=== PATIENT | female | born 1975 | race Caucasian/White ===

== ENCOUNTER 2020-10-08 13:52 | Outpatient (CLI) | payer OTHER, SELFPAY ==
--- NOTE | ~2020-10-08 | US_ITS ---
EXAMINATION: US OB follow up DATE: 10/08/2020 14:51 INDICATION: Evaluate growth TECHNIQUE: Real-time transabdominal obstetric ultrasound. FINDINGS: No prior studies for comparison. There is a single living fetus in vertex presentation. The placenta is posterior without placenta pr evia. cardiac activity and movement is noted with a heart rate of 123 beats per minute. T he amniotic fluid volume is normal. MOLLY measures 13.3 cm. The following biometric data were obtained: BPD: 74mm corresponds to gestational age 29 weeks 3 days. Head circumference: 269mm corresponds to gestational age 29 weeks 2 days. Abdominal circumference: 249mm corresponds to gestational age 29 weeks 1 days. Femur length: 57mm corresponds to gestational age 29 weeks 5 days. Estimated weight: 1383grams +/- 207grams, 35th percentile for age. IMPRESSION: 1. Single living intrauterine in vertex presentation with an estimated gestational age of 29 weeks 3 days by current ultrasound. EDC by current ultrasound is 12/21/2020. 2. Normal MOLLY measures 13.3 cm. Reviewed, dictated and finalized at location A. FRAME SOFTWARE DEVELOPER IMPRESSION: 1. Single living intrauterine in vertex presentation with an estimat ed gestational age of 29 weeks 3 days by current ultrasound. EDC by current ult rasound is 12/21/2020. 2. Normal MOLLY measures 13.3 cm.
== END 2020-10-08 13:53 | disposition home or self-care (01) ==
LOC: ANHIMG 13:58
PROVIDERS: Visit Provider Obstetrics & Gynecology
DX: Z34.90 Encounter for supervision of normal pregnancy, unspecified, unspecified trimester (principal); Z3A.00 Weeks of gestation of pregnancy not specified
CPT/HCPCS: 76816

== ENCOUNTER 2020-12-31 12:10 | Outpatient (RCR) | payer OTHER, SELFPAY ==
[2020-12-26 15:57] VITALS: BP 127/80; PULSE 74
[2020-12-28 17:08] VITALS: BP 131/81; PULSE 80
--- NOTE | ~2020-12-31 | US_ITS ---
EXAMINATION: US OB limited w BPP DATE: 12/26/2020 15:48 CDT INDICATION: Postdates. TECHNIQUE: Real-time transabdominal obstetric ultrasound. FINDINGS: Ultrasound dated 10/08/2020 There is a single living fetus in vertex presentation. The placenta is fundal without placenta previ a. cardiac activity and movement is noted with a heart rate of 147 beats per minute. Biophysical profile: breathin of 2 movement: 2 of 2 tone: 2 of 2 Amniotic flud pocket: 2 of 2 Total score: 6 of 8 MOLLY is normal measuring 11.4 cm (normal range for gestational age is 7-19.4 cm). IMPRESSION: 1. Single living intrauterine in vertex presentation. 2: Total biophysical profile score of 6/8. 3: Normal MOLLY measures 11.4 cm. Reviewed, dictated and finalized at location A.
--- NOTE | ~2020-12-31 | US_ITS ---
EXAMINATION: US OB follow up w BPP EXAM DATE: 12/28/2020 16:41 INDICATION: Postdates. 12/26/2020. TECHNIQUE: Pelvic obstetrical transabdominal sonogram was performed by a technologist. There are mu ltiple grayscale and Doppler images available for interpretation. Comparison is made to prior examina tion from 12/26/2020. FINDINGS: There is a single fetus identified in vertex presentation with a heart rate of 157 beats pe r minute. The placenta is located in the posterior position. There is no sonographic evidence of ret roplacental hemorrhage identified. The amniotic fluid index is 14.0 centimeters, which is normal. BIOMETRIC DATA: Biparietal diameter (BPD): 9.4 cm --------------> 38 weeks 3 days. Head circumference (HC): 33.0 cm ---------------> 37 weeks 4 days. Abdominal circumference (AC): 39.2 cm ---------> out of range. Femur length (FL): 7.3 cm ------------------------> 37 weeks 1 day. These measurements are discordant, likely from large abdominal circumference measurement. HC/AC ratio is 0.84 (The 5th -- 95th percentile range is 0.90-1.05. FL/AC ratio of 18.50 The 5th -- 95th percentile range is 20.0-24.0. Estimated weight is 4189 g +/- 628 g. This is the 80th percentile when the currently reported clinical gestation age 41 weeks 0 days, clinical estimated date of delivery (MAGUI-OPE) 12/21/2020 is us ed. estimated gestational age based on measurements from this exam is 37 weeks 5 days, with an estimated date of delivery (MAGUI-AUA) 01/13/2021 (abdominal circumference measurement was out of upper limits and was not included to by the ultrasound machine to calculate this age by ultrasound). BIOPHYSICAL PROFILE (performed by the technologist) breathing (30 sec sustained breathing in 30 minutes): 2 out of 2 movement (3 gross body movements in 30 minutes): 2 out of 2 tone (one episode of ujczmzh-qrgbvenvh-djhqxbl limb movement): 2 out of 2 Amniotic fluid pocket (2 cm): 2 out of 2 Total score: 8 out of 8 IMPRESSION: 1. Single fetus with heart rate of 157 bpm. 2. Normal biophysical profile score of 8 out of 8. 3. Estimated weight 4189 g, 80th percentile using clinical gestation age 41 weeks 0 days. 4. Large abdominal circumference measurement causing discordant ratios as above. Reviewed, dictated and finalized at location B. IMPRESSION: 1. Single fetus with heart rate of 157 bpm. 2. Normal biophysical profile score of 8 out of 8. 3. Estimated weight 4189 g, 80th percentile using clinical gestation age 41 weeks 0 days. 4. Large abdominal circumference measurement causing discordant ratios as abov e.
--- NOTE | ~2020-12-31 | US_ITS ---
EXAMINATION: US OB BPP wo non-stress EXAM DATE: 12/31/2020 13:12 INDICATION: Postdates. 3rd trimester. TECHNIQUE: Pelvic obstetrical transabdominal sonogram was performed by a technologist. There are mu ltiple grayscale and Doppler images available for interpretation. Comparison is made to prior examina tion from 12/28/2020. FINDINGS: There is a single fetus identified in vertex longitudinal presentation with a heart rate of 125 beats per minute. The placenta is located in the fundal position. There is no sonographic evide nce of retroplacental hemorrhage identified. There is subjectively expected amount of amniotic fluid . BIOPHYSICAL PROFILE (performed by the technologist) breathing (30 sec sustained breathing in 30 minutes): 2 out of 2 movement (3 gross body movements in 30 minutes): 2 out of 2 tone (one episode of lbqoqqj-awlxvwdkc-xrwahjf limb movement): 2 out of 2 Amniotic fluid pocket (2 cm): 2 out of 2 Total score: 8 out of 8 IMPRESSION: 1. Single fetus with heart rate of 125 bpm. 2. Normal biophysical profile score of 8 out of 8. Reviewed, dictated and finalized at location B.
== END 2021-01-06 07:36 | disposition home or self-care (01) ==
LOC: ANHOBOP 12:10
PROVIDERS: Visit Provider Obstetrics & Gynecology
DX: O48.0 Post-term pregnancy (principal); Z3A.40 40 weeks gestation of pregnancy; Z3A.41 41 weeks gestation of pregnancy
CPT/HCPCS: 59025; 76815; 76816; 76819

== ENCOUNTER 2021-01-05 16:52 | Inpatient (IN) | payer OTHER, SELFPAY ==
--- NOTE | 2020-12-26 06:35 | PM.IMHP ---
H&P: HPI History of Present Illness Date/Time: 12/26/20 06:35 45 yo F presents for IOL at 40wksand 5days. complicated by AMA, MTHFR, and history of recurrent loss. I explained her condition procedure and risks involved. She understands the risk of shoulder dystocia and hemorrhage as well as risk for section including but not limited to bleeding infection injury to bladder bowel baby pelvic vessels DVT pneumonia wound infections UTI the risk of anesthesia agrees to proceed Chief Complaint: elective induction of labor post term Review of Systems Review of Systems: All systems reviewed & are unremarkable except as noted in HPI and below Constitutional: Constitutional: Reports no additional constitutional complaints Eyes: Eyes: Reports no additional eye complaints ENT: Reports system reviewed and no additional complaints, except as documented Cardiovascular: Cardiovascular: Reports no additional cardiovascular complaints Respiratory: Respiratory: Reports no additional respiratory complaints Gastrointestinal: Gastrointestinal: Reports no additional gastrointestinal complaints Genitourinary: Genitourinary: Reports no additional female genitourinary complaints Musculoskeletal: Musculoskeletal: Reports no additional musculoskeletal complaints Integumentary/Breasts: Skin/Breast: Reports system reviewed and no additional complaints, except as docu Neurologic: Reports system reviewed and no additional complaints, except as documented Psychiatric: Psychiatric: Reports no additional psychiatric complaints Endocrine: Endocrine: Reports no additional endocrine complaints Hematologic/Lymphatic: Hematologic/Lymphatic: Reports no additional hematologic/lymphatic complaints Allergic/Immunologic: Allergic/Immunologic: Reports no additional allergic/immunologic complaints [facility] Past Medical History Medical History (Updated 12/26/20 @ 06:52 by Silvano Steinberg MD) AMA (advanced maternal age) multigravida 35+ Anemia Candidiasis of vagina Heterozygous MTHFR mutation [id number] Recurrent loss Trichomonal vaginitis Vaginal delivery 11/18/200314012 hrs.7 lbs.0.99 oz.MStandard Vaginal DeliveryFull Term [facility] 05/05/200514010 hrs.7 lbs.2 oz.FStandard Vaginal DeliveryFull Term [facility] 02/11/2018141.38 lbs.13 oz.MVaginalFull Term [facility] Surgical History Surgical History (Updated 12/26/20 @ 06:48 by Silvano Steinberg MD) History of D&C 1995 History of dilatation and curettage 1999 Family History Family History Mother Hypertension Father Cancer of abdominal wall Social History Social History (Updated 12/26/20 @ 06:49 by Silvano Steinberg MD) Smoking status: Never smoker Second hand tobacco smoke exposure: No Alcohol intake: never Substance use: never Substance use type: does not use Living arrangements: with family Occupation/Education: unemployed Gender identity (if verbalized by the patient): Female Sexual Orientation (if Verbalized by the Patient): Straight or Heterosexual Spiritual care concerns: No Agree to blood products: Yes Meds Home Medications and Allergies Home Medications Medication Instructions Recorded Confirmed Type PNV cmb#95-ferrous fumarate-FA 1 tablet PO DAILY 11/22/20 11/22/20 History [] aspirin 81 mg PO DAILY 11/22/20 11/22/20 History calcium carbonate-vitamin D3 1 cap PO DAILY 11/22/20 11/22/20 History [Calcium 600 with Vitamin D3] cyanocobalamin (vitamin B-12) 1,000 mcg MONTHLY 11/22/20 11/22/20 History folic acid 1 mg PO DAILY 11/22/20 11/22/20 History nystatin-triamcinolone 1 applic TOPICAL BID 11/22/20 11/22/20 History progesterone micronized 200 mg PO HS 11/22/20 11/22/20 Histor
--- NOTE | 2020-12-26 06:40 | WPDHPUPDATE1 ---
History and Physical Update Update Date/Time: 12/26/20 06:40 History and Physical has been reviewed, including an updated exam of the patient. There are NO changes in the patient's condition. Risks, benefits, and alternatives have been discussed and questions answered. Patient agrees to proceed with procedure. 45 yo F presents for IOL at 40wksand 5days. complicated by AMA, MTHFR, and history of recurrent loss. I explained her condition procedure and risks involved. She understands the risk of shoulder dystocia and hemorrhage as well as risk for section including but not limited to bleeding infection injury to bladder bowel baby pelvic vessels DVT pneumonia wound infections UTI the risk of anesthesia agrees to proceed
--- NOTE | 2020-12-26 06:40 | WPDOBADMIT ---
Obstetrics - Admit Note Admission Note: record reviewed. No pertinent additions to the history and/or any subsequent changes in the physical findings that are not consistent with the expected course of the were found. Additions to the history and/or subsequent changes in the physical findings follow. None. 45 yo F presents for IOL at 40wksand 5days. complicated by AMA, MTHFR, and history of recurrent loss. I explained her condition procedure and risks involved. She understands the risk of shoulder dystocia and hemorrhage as well as risk for section including but not limited to bleeding infection injury to bladder bowel baby pelvic vessels DVT pneumonia wound infections UTI the risk of anesthesia agrees to proceed
[2021-01-05] VITALS (26 sets, daily range): BP systolic 98–178; BP diastolic 56–161; PULSE 70–142; RESP 14–18; TEMP 36.6–36.9; BMI 33.4
--- OUTSIDE RECORDS SUMMARY | 2021-01-05 16:56 | XMS_ITS | Encounter Summary ---
:1975 Author Care Team Providers Name Role Phone Silvano Steinberg MD Exhibition Specialist [phone] Reason for Visit ob routine visit Assessment and Plan Assessment Note HEMANT Bravo 1. Routine care US 10/08/2020 with appropriate growth, EFW 35%, MOLLY WNL. ? urinalysis, dipstick 2. Post-term ? post-term : care instructions ? induction of labor (PROC) 3. -induced hypertensio n 4. Advanced maternal age NIPT low risk. VSS. Continue A SA 162 mg QD. ? advanced maternal age: car e instructions 5. Anemia of 6. 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 7. History of 2 miscarriages 8. Recurrent miscarriage Discussion Note: None recorded. Plan of Care Reminders Provider Appointments 15 M arina Steinberg, 01/26/2021 1:45PM Lab Urinalysis, In-Of fice Order Dipstick 01/05/2021 Referral None recorded. ? ? Procedures Induction of Pérez rson Labor (PROC) 01/05/2021 Hospital Surgeries None recorded. ? ?
--- OUTSIDE RECORDS SUMMARY | 2021-01-05 16:56 | XMS_ITS ---
:1975 Author Care Team Providers Name Role Phone JONI PADILLA MD Dull Coat Mill Operator [phone] Allergies Code Code System Name Reaction Severity Status Onset NKDA ? Medications Name Status Start Date Stop Date ? ? aspirin 81 mg tablet,delayed release Active ? Not available Calcium 600 + D(3) 600 mg (1,500 mg)-400 unit tablet Completed ? 06/17/2020 Take 1 tablet twice a day by oral route. Calcium 600 with Vitamin D3 600 mg (1,500 mg)-400 unit capsule A ctive ? Not available Take 1 capsule twice a day by oral route. calcium carbonate-vitamin D3 600 mg (1,500 mg)-800 unit tablet C ompleted ? 12/26/2017 Take 1 tablet twice a day by oral route for 30 days. cephalexin 500 mg capsule Completed ? 2017 Condoms-Abhishek Lubricated Completed ? 06/17/20 20 Take 1 device by miscell. route. cyanocobalamin (vit B-12) 1,000 mcg/mL injection solution Active ? Not available Inject 1 mL every month by subcutaneous route. ferrous sulfate 325 mg (65 mg iron) tablet Completed ? 06/17/2020 Take 1 tablet every day by oral route. fluconazole 150 mg tablet Active ? Not av ailable folic acid 1 mg tablet Active ? Not avail able ibuprofen 800 mg tablet Completed ? 06/17/20 20 K-Y Lubricating topical jelly Completed ? Apply 1 g as needed by topical route. Or [place] Liquid metronidazole 500 mg tablet Completed ? 05/30 nystatin 100,000 unit/gram topical Active ? Not available cream penicillin V potassium 500 mg tabl
--- OUTSIDE RECORDS SUMMARY | 2021-01-05 16:57 | XMS_ITS | Encounter Summary ---
:1975 Author Care Team Providers Name Role Phone Silvano Steinberg MD Rn Document Improvement [phone] Reason for Visit ob routine visit Patient would like to see a chiropractor . Having some back pain. Paper will be coming for a breast pump. Assessment and Plan 1. Routine care YAS at 31w3d. c/b AM A, MTHFR, and hx of recurrent loss. US 10/08 with appropriate growth, E FW 35%, MOLLY wnl. RTC in 2 weeks. ? urinalysis, dipstick 2. Advanced maternal age NIPT low risk. VSS. Continue A SA 162. 3. Heterozygous methylenetetrahy drofolate reductase mutation MTHFR [id number] variant. Continue progesterone, folic acid, and aspirin. B12 injection given today. ? cyanocobalamin (vit B-12) 1,000 mcg/mL injection solution 4. Recurrent miscarriage RPL protocol. 5. Low back pain Chronic low back pain. Has see n chiropractor during first two pregnancies, will refer. ? chiropractor referral Discussion Note: None recorded.Patient educational handouts: No information available. Plan of Care Reminders Provider Appointments 15 M arina Steinberg, 01/26/2021 1:45PM Lab Urinalysis, In-Of fice Order Dipstick 10/22/2020 Referral Chiropractor Bryan Tapia Referral 10/22/2020 [facility] Proc
--- OUTSIDE RECORDS SUMMARY | 2021-01-05 16:57 | XMS_ITS | Encounter Summary ---
:1975 Author Care Team Providers Name Role Phone Silvano Steinberg MD Packaging Engineer [phone] Reason for Visit ob routine visit CC Pt is still having discharge, Wants t o do it with nutrition. No spotting, cramping, fluid leakage, or contractions. Baby moving a lot. Assessment and Plan Assessment Note LANE Estrada 1. Routine care YAS at 34w3d. compli cated by WALTER VILLAVICENCIO, and history of recurrent loss. US 10/08/2020 with approp riate growth, EFW 35%, MOLLY WNL. WTC/WLB reviewed. RTC in 2 weeks. ? urinalysis, dipstick 2. Advanced maternal age NIPT low risk. VSS. Continue A SA 162 mg QD. 3. Recurrent miscarriage RPL protocol. 4. Heterozygous methylenetetrahy drofolate reductase mutation Heterozygous MTHFR [id number] vari ant. Continue progesterone, folic acid, and aspirin. B12 injection given on 1. 5. Vulvitis Complains of thick yellowish v aginal discharge with external irritation/pruritis that has improved wi th nystatin cream. She is requesting for refill of topical nystatin cream today. Advised to keep area clean and dry. Avoid daily pad use. Wear loose cotton clothin g. Do not wear nylon or other fabric that holds body heat and moisture close to th e skin. Try sleeping without underwear. Do not scratch. Relieve itching with a cold pack or a cool bath. ? nystatin 100,000 unit/gram topical cream Discussion Note: None recorded.Patient educational handouts: No information available. Plan of Care Reminders Provider
--- OUTSIDE RECORDS SUMMARY | 2021-01-05 16:57 | XMS_ITS | Encounter Summary ---
:1975 Author Care Team Providers Name Role Phone Silvano Steinberg MD Waiter/Waitress Tourist Class [phone] Reason for Visit ob routine visit Assessment and Plan Assessment Note LANE [place] 1. Routine care YAS at 39w1d. No cervical mueller ges. Will send for NST/BPP. Discussed plan for induction at 40 wks. RTC in 1 week [address] [facility] Dr. Steinberg. ? US, obstetric, biophysical profile + non-stress test ? urinalysis, dipstick 2. Advanced maternal age NIPT low risk. VSS. Continue A SA 162 mg QD. ? advanced maternal age: car e instructions 3. 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 B12 given /. Discussion Note: None recorded. Plan of Care Reminders Provider Appointments 15 M arina Steinberg, 01/26/2021 1:45PM Lab Urinalysis, In-Of fice Order Dipstick 12/15/2020 Referral None recorded. ? ? Procedures None recorded. ? ? Surgeries None recorded. ? ? Imaging US, Obstetric, An derson Biophysical Profile + 12/15/2020 Hospital Non-stress Test Medications Name Start Date ? ?
--- OUTSIDE RECORDS SUMMARY | 2021-01-05 16:57 | XMS_ITS | Encounter Summary ---
:1975 Author Care Team Providers Name Role Phone Silvano Steinberg MD Hot Tamale Worker [phone] Reason for Visit ob routine visit Assessment and Plan Assessment Note LANE [place] 1. Routine care 10/08/2020 with appropriate growth, EFW 35%, MOLLY WNL. ? urinalysis, dipstick ? bacterial vaginosis panel, vaginal ? culture, vaginal/rectal, s treptococcus group B 2. Advanced maternal age NIPT low risk. VSS. Continue A SA 162 mg QD. ? advanced maternal age: car e instructions 3. 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 Gave b12 today. ? cyanocobalamin (vit B-12) 1,000 mcg/mL injection solution 4. Vulvitis Continues to complains of thic k yellowish vaginal discharge with external irritation/pruritis that has improved wi th nystatin cream. Cultures obtained today. Advised to keep area clean and dry. Avoi d daily pad use. Wear loose cotton clothing. Do not wear nylon or other fabric that h olds body heat and moisture close to the skin. Try sleeping without underwear. Do not scratch. Relieve itching with a cold pack or a cool bath. 5. History of 2 miscarriages Discussion Note: None recorded. Plan of Care Reminders Provider Appointments 15 M arina Steinberg, 01/26/2021 1:45PM Lab Urinalysis, In-Of fice Order
--- OUTSIDE RECORDS SUMMARY | 2021-01-05 16:57 | XMS_ITS | Encounter Summary ---
:1975 Author Care Team Providers Name Role Phone Silvano Steinberg MD Slate Cutter Operator [phone] Reason for Visit ob routine visit Assessment and Plan Assessment Note MINERVA [place]on[place] 1. Routine care US 10/08/2020 with appropriate growth, EFW 35%, MOLLY WNL. ? urinalysis, dipstick ? induction of labor (PROC) - NCB 2. Advanced maternal age NIPT low risk. VSS. Continue A SA 162 mg QD. ? advanced maternal age: car e instructions 3. 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 4. Recurrent miscarriage Discussion Note 45 yo F presents for YAS at 40wks. complicated by AMA, MTHFR, and history of recurrent loss. Plan of Care Reminders Provider Appointments 15 M arina Steinberg, 01/26/2021 1:45PM Lab Urinalysis, In-Of fice Order Dipstick 12/21/2020 Referral None recorded. ? ? Procedures Induction of Pérez rson Labor (PROC) 12/21/2020 Hospital Surgeries None recorded. ? ? Imaging None recorded. ? ?
--- OUTSIDE RECORDS SUMMARY | 2021-01-05 16:57 | XMS_ITS | Encounter Summary ---
:1975 Author Care Team Providers Name Role Phone Silvano Steinberg MD Media Executive [phone] Reason for Visit ob routine visit Assessment and Plan Assessment Note Johana SHERMAN 1. Routine care US 10/08/2020 with appropriate growth, EFW 35%, MOLLY WNL. ? urinalysis, dipstick ? Vitamins Plus Low Iron 27 mg iron-1 mg tablet 2. Advanced maternal age NIPT low risk. VSS. Continue A SA 162 mg QD. ? advanced maternal age: car e instructions 3. 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 Gave b12 today. ? folic acid 1 mg tablet ? progesterone micronized 20 0 mg capsule 4. Recurrent miscarriage Discussion Note 45 yo F presents for YAS at 37w6d. complicated by AMA, MTHFR, and history of recurrent loss. Here for routine visit. Patient has selected Prac[place] as baby na me, will plan for natural delivery, exclusively, and does not want control after the . Plan of Care Reminders Provider Appointments 15 M arina Steinberg, 01/26/2021 1:45PM Lab Urinalysis, In-Of fice Order Dipstick 12/06/2020 Referral None recorded. ? ? Procedures None recorded. ? ?
--- OUTSIDE RECORDS SUMMARY | 2021-01-05 16:57 | XMS_ITS | Encounter Summary ---
:1975 Author Care Team Providers Name Role Phone Silvano Steinberg MD Systems Support Officer [phone] Reason for Visit ob routine visit CC No spotting, cramping or fluid leakag e, or contractions. Baby is moving a lot Assessment and Plan Assessment Note LANE Nieves 1. Routine care YAS at 29w3d. c/b AM A, MTHFR, and hx of recurrent loss. GCT negative. US performed earlier today , awaiting report. WTC/WLB reviewed. RTC in 2 weeks. ? urinalysis, dipstick 2. Advanced maternal age NIPT low risk. VSS. Continue A SA 162. 3. Heterozygous methylenetetrahy drofolate reductase mutation MTHFR [id number] variant. Continue progesterone, folic acid, and aspirin. B12 injection given 09/22. 4. Recurrent miscarriage RPL protocol. Discussion Note: None recorded.Patient educational handouts: No information available. Plan of Care Reminders Provider Appointments 15 M arina Steinberg, 01/26/2021 1:45PM Lab Urinalysis, In-Of fice Order Dipstick 10/08/2020 Referral None recorded. ? ? Procedures None recorded. ? ? Surgeries None recorded. ? ? Imaging None recorded. ? ?
--- NOTE | 2021-01-05 17:28 | LDADM ---
This patient, Anisa Haro, was admitted to Labor/Delivery/Recovery 103 on 01/05/21 at 16:52. Plans for labor, pain management and were discussed with patient. Patient/family oriented to hospital policies and general routines including ID bracelet, bed and alarms, visiting hours, pain management, procedures, bathroom and other care routines, personal items, smoking policy, room service/diet and guest tray routines, security routines, and visiting hours. Patient/Family are encouraged to report perceived risks to care and to ask questions if they do not understand what they are told or what they should do. See OBIX for further documentation.
[2021-01-05 17:46] LABS: Alanine Aminotransferase 16 U/L (4-35); Albumin Level 3.7 g/dL (3.5-5.1); Alkaline Phosphatase 218 U/L (38-126); Anion Gap 10 mmol/L (8-16); Aspartate Amino Transferase 30 U/L (14-36); Bilirubin,Total 0.4 mg/dL (0.2-1.3); Blood Urea Nitrogen 10 mg/dL (7-17); Carbon Dioxide 19 mmol/L (22-30); Chloride 108 mmol/L (98-107); Estimated CRCL calculation 103 ml/min; Estimated Glomerular Filt Rate > 60; Glucose 74 mg/dL (65-105); Potassium 3.9 mmol/L (3.4-5.0); Sodium 137 mmol/L (137-145); Uric Acid 5.5 mg/dL (2.5-7.5)
[2021-01-05] MEDS: OXYTOCIN 30 UNITS/NS 500 ML 30 UNITS/500 ML BAG IV CONT (17:53)
[2021-01-05] MEDS: LACTATED RINGERS 1,000 ML 125 ML IV CONT (17:54)
[2021-01-05 17:59] LABS: Basophils Percent Auto 0.5 % (0.2-1.2); Eosinophils Absolute Auto 0.1 K/mm3 (0-0.3); Eosinophils Percent Auto 1.1 % (0-4.4); Hematocrit 35.2 % (37.0-47.0); Hemoglobin 11.5 g/dL (12.0-15.0); Immature Granulocyte Absolute 0.03 K/mm3 (0.00-0.031); Immature Granulocyte Percent A 0.4 % (0-0.5); Lymphocytes Absolute Auto 1.67 K/mm3 (0.9-3.2); Lymphocytes Percent Auto 20.7 % (18.3-44.2); Mean Corpuscular HGB Conc 32.7 g/dl (32-36); Mean Corpuscular Hemoglobin 27.4 pg (26-34); Mean Platelet Volume 11.9 fl (7.4-10.4); Monocytes Absolute Auto 0.5 K/mm3 (0.1-0.6); Monocytes Percent Auto 6.7 % (2.6-8.5); Neutrophils Absolute Auto 5.7 K/mm3 (1.3-6.7); Neutrophils Percent Auto 70.6 % (45.5-73.1); Platelet Count Result 220 k/mm3 (150-375); Red Blood Count 4.19 M/mm3 (4.2-5.4); Red Cell Distribution Width 15.2 % (11.5-14.5); White Blood Count 8.1 K/mm3 (4.5-10.0)
--- NOTE | 2021-01-05 19:40 | WPDHPUPDATE1 ---
History and Physical Update Update Date/Time: 01/05/21 19:40 History and Physical has been reviewed, including an updated exam of the patient. There are NEW changes in the patient's condition. Risks, benefits, and alternatives have been discussed and questions answered. Patient agrees to proceed with procedure. 45 yo F presents for IOL at 42wksand 5days. complicated by POST TERM , large for gestational age, -induced hypertension, AMA, MTHFR, anemia and history of recurrent loss. I explained her condition procedure and risks involved. She understands the risk of shoulder dystocia, meconium-stained amniotic fluid and hemorrhage as well as risk for section including but not limited to bleeding infection injury to bladder bowel baby pelvic vessels DVT pneumonia wound infections endometritis, UTI and the risk of anesthesia she understands all this accepts and agrees to proceed favorable cervix on admission Pitocin with rupture membranes and vaginal delivery planned under natural childbirth with skin to skin should be she is having a girl named Edda Gauthier
--- NOTE | 2021-01-05 19:50 | WPDOBADMIT ---
Obstetrics - Admit Note Admission Note: record reviewed. No pertinent additions to the history and/or any subsequent changes in the physical findings that are not consistent with the expected course of the were found. Additions to the history and/or subsequent changes in the physical findings follow. None. 45 yo F presents for IOL at 42wksand 5days. complicated by POST TERM , large for gestational age, -induced hypertension, AMA, MTHFR, anemia and history of recurrent loss. I explained her condition procedure and risks involved. She understands the risk of shoulder dystocia, meconium-stained amniotic fluid and hemorrhage as well as risk for section including but not limited to bleeding infection injury to bladder bowel baby pelvic vessels DVT pneumonia wound infections endometritis, UTI and the risk of anesthesia she understands all this accepts and agrees to proceed favorable cervix on admission 4 cm 75% and -1 with contractions induction agent will be Pitocin with rupture membranes vaginal delivery planned under natural childbirth with skin to skin will be she is having a girl named Edda Gauthier control undecided
--- NOTE | 2021-01-05 19:51 | PM.IMHP ---
H&P: HPI History of Present Illness Date/Time: 01/05/21 19:51 45 yo F presents for IOL at 42wksand 5days. complicated by POST TERM , large for gestational age, -induced hypertension, AMA, MTHFR, anemia and history of recurrent loss. I explained her condition procedure and risks involved. She understands the risk of shoulder dystocia, meconium-stained amniotic fluid and hemorrhage as well as risk for section including but not limited to bleeding infection injury to bladder bowel baby pelvic vessels DVT pneumonia wound infections endometritis, UTI and the risk of anesthesia she understands all this accepts and agrees to proceed favorable cervix on admission Pitocin with rupture membranes and vaginal delivery planned under natural childbirth with skin to skin should be she is having a girl named Edda Guathier Chief Complaint: post term 42 weeks advanced maternal age large for gestational age Review of Systems Review of Systems: All systems reviewed & are unremarkable except as noted in HPI and below PMFSH Past Medical History Medical History (Updated 01/05/21 @ 19:54 by Silvano Steinberg MD) AMA (advanced maternal age) multigravida 35+ Anemia Candidiasis of vagina Heterozygous MTHFR mutation [id number] Recurrent loss Trichomonal vaginitis Vaginal delivery 11/18/200314012 hrs.7 lbs.0.99 oz.MStandard [facility]05/200514010 hrs.7 lbs.2 oz.FStandard Vaginal DeliveryFull [facility] 02/11/2018141.38 lbs.13 oz.MVaginalFull Term [facility] History Surgical History (Updated 12/26/20 @ 06:48 by Silavno Steinberg MD) History of D&C 1995 History of dilatation and curettage 1999 Family History Family History Mother Hypertension Father Cancer of abdominal wall Social History Social History (Updated 12/26/20 @ 06:49 by Silvano Steinberg MD) Smoking status: Never smoker Second hand tobacco smoke exposure: No Alcohol intake: never Substance use: never Substance use type: does not use Living arrangements: with family Occupation/Education: unemployed Gender identity (if verbalized by the patient): Female Sexual Orientation (if Verbalized by the Patient): Straight or Heterosexual Spiritual care concerns: No Agree to blood products: Yes Meds Home Medications and Allergies Home Medications Medication Instructions Recorded Confirmed Type PNV cmb#95-ferrous fumarate-FA 1 tablet PO DAILY 11/22/20 11/22/20 History [] aspirin 81 mg PO DAILY 11/22/20 11/22/20 History calcium carbonate-vitamin D3 1 cap PO DAILY 11/22/20 01/05/21 History [Calcium 600 with Vitamin D3] cyanocobalamin (vitamin B-12) 1,000 mcg MONTHLY 11/22/20 11/22/20 History folic acid 1 mg PO DAILY 11/22/20 11/22/20 History nystatin-triamcinolone 1 applic TOPICAL BID 11/22/20 11/22/20 History progesterone micronized 200 mg PO HS 11/22/20 01/05/21 History Allergies Allergy/AdvReac Type Severity Reaction Status Date / Time No Known Allergies Allergy Verified 11/22/20 14:43 Vital Signs Vital Signs - 24 hr 01/05/21 17:26 01/05/21 17:46 01/05/21 18:01 Temperature Pulse Rate 77 77 76 Respiratory Rate Blood Pressure 135/83 139/91 H 128/76 01/05/21 18:16 01/05/21 18:30 01/05/21 18:31 Temperature 97.8 F Pulse Rate 84 Respiratory Rate 18 Blood Pressure 136/78 01/05/21 18:32 01/05/21 18:46 01/05/21 19:17 Temperature Pulse Rate 75 73 82 Respiratory Rate Blood Pressure 135/81 119/86 120/70 01/05/21 19:32 01/05/21 19:46 Temperature Pulse Rate 74 93 Respiratory Rate Blood Pressure 142/86 H 166/102 H Exam Const: General:
--- NOTE | 2021-01-05 19:55 | PM.OBPNLAB ---
Pain Control Date/time seen: 01/05/21 19:55 Pain control: tolerating well Pelvic Exam Dilation (cm): 5 Effacement (%): 90 station: -1 Amniotic membrane status: Ruptured ( meconium stained amniotic fluid with artificial rupture membranes with amnio hook) Contractions Monitor mode: External Contraction frequency: 5 Contraction duration: 45 Contraction pattern: Irregular Contraction phase: Contraction Contraction intensity: Mild Status status: Category l Assessment and Plan Assessment: induction ongoing Plan: continuous present management
--- NOTE | 2021-01-05 21:23 | PM.OBPRVD ---
OB - Delivery Note Procedure Delivery date: 01/05/21 Procedure: Normal spontaneous vertex vaginal delivery a viable female infant and placenta events: Postterm Labor > 42 Weeks, Induced HTN and Labor Induction Intrapartal events: Precipitous Labor < 3 hours Induction method: per pitocin protocol Delivery augmentation: rupture of membranes Delivery monitor: external FHT and external uterine Route of delivery: Episiotomy description: None Laceration Description: None Specimen: Yes (Placenta, cord blood, cord blood gases) Quantitative Blood Loss (ml): 100 Anesthesia type: None Disposition: floor Complications: None Narrative: Complete cervical dilation normal spontaneous vertex vaginal delivery viable female infant over an intact perineum nuchal cord x1 reduced on the perineum anterior shoulder delivered without difficulty baby delivered and placed onto the maternal abdomen cord clamped and cut spontaneous respirations and cry normal transition baby cared for by nursery nurse in attendance taken to the nursery in stable condition. Cord gases and cord blood obtained. Placenta delivered intact three-vessel cord the uterus contracted well Pitocin given intravenously. Cervix vagina checked no sponges left in the vagina no fistula sphincter intact mom and baby in LDR room 1. 0 3 stable condition. skin to skin contact given Baby Date of : 01/05/21 Time of : 21:10 Weeks of gestation at delivery: 42 Infant gender: Female (Edda) Weight (pounds): 9 Weight (ounces): 7 presentation: vertex position: Left Occiput Anterior Placenta delivery description: Spontaneous and Normal Configuration cord vessel description: 3 Vessels and Nuchal Cord score one minute: 8 score five minutes: 9 Narrative: Normal transition taken to the nursery in stable condition normal exam
--- NOTE | 2021-01-05 21:38 | OBPPTRN ---
Patient transferred to post room #286 via wheelchair. Oriented to unit, room, information board, rooming in, admission packet and security measures. Patient verbalizes understanding.
[2021-01-05] MEDS: OXYTOCIN 30 UNITS/NS 500 ML 30 UNITS/500 ML BAG 125 UNITS IV CONT (21:42)
[2021-01-06] VITALS (7 sets, daily range): BP systolic 120–130; BP diastolic 76–83; PULSE 57–77; RESP 15–17; TEMP 36.3–37; O2SAT 98–99
[2021-01-06 05:47] LABS: Hematocrit 34.5 % (37.0-47.0)
[2021-01-06 07:18] LABS: Rapid Plasma Reagin Non-Reactive (NonReactive)
[2021-01-06] MEDS: DOCUSATE SODIUM 100 MG CAPSULE PO (10:37)
[2021-01-06] MEDS: MULTIVIT/MIN/PREN/FOL AC/IRON TABLET 1 TAB PO (10:37)
--- NOTE | 2021-01-06 11:45 | PC.NURSE ---
Consulted with patient, mother reports this is 4th child to breastfeed. Mother is currently comfort 2.5 year old 3-4 times per day. Reviewed should always be fed first to assure is getting as much as she requires. Reviewed feeding cues, frequencies, duration of feedings, feeding elimination flow sheet, and signs of adequate intake. Demonstrated stimulation techniques to wake infant for feeding. Assisted with to breast. Reviewed positioning/alignment in cross cradle, holding breast in ?U? hold and guided asymmetrical latch on. Infant able to latch correctly. Infant nursed eagerly, with steady draws and frequent swallowing noted. Reviewed signs of a correct latch, effective nursing and suck swallow ratio. Infant was able to maintain latch without discomfort to mother. Demonstrated how to adjust latch more deeply while feeding. Mother reports she can feel change in latch and has no tenderness. Nipple care reviewed of lanolin after feedings, warm compresses and gel pads as needed. Suggested mother stimulate while feeding to increase stimulate, increase intake and to assist with maintaining deep latch. Instructed mother to call out for RN assistance if she is unable to latch for feeding or she has discomfort with nursing. Instructed feeding should be initiated three hours from start of last feeding or if feeding cues are noted before. Mother voiced understanding of information shared.
--- NOTE | 2021-01-06 19:43 | PM.OBPNVD ---
OB - PN: Subj Subjective Date/time seen: 01/06/21 19:43 Patient comments: no complaints and pain well controlled baby status: doing well and nursing well [place] feeding status: exclusively breast feeding OB - PN: Obj Data Labs CBC & Chem 7: 01/06/21 05:08 01/05/21 17:23 Labs: Laboratory Results - last 24 hr 01/05/21 01/06/21 17:23 05:08 Hgb 11.0 L Hct 34.5 L RPR Non-reactive OB - PN A/P Assessment and Plan (1) Post term , delivered: Code(s): O48.0 - Post-term Status: Acute Plan day: 1 Plan: routine care, discharge home and follow up 6 weeks Time Spent With Patient Time: Total time spent is greater than 50% in coordination of care (as documented) at patient's floor/unit and/or counseling patient: Time with patient: less than 15 minutes Review of Systems Review of Systems: All systems reviewed & are unremarkable except as noted in HPI and below Exam Const: General: comfortable and no acute distress Chest: Breast/axilla inspection: normal inspection of the breasts Resp: Effort & Inspection: normal respiratory effort Cardio: Rate: regular rate GI: GI Palp: Yes Soft to palpation : General: Yes no CVA tenderness External Female Exam: normal external appearance Psych: Appearance: grossly normal Mental Status: mental status grossly normal Affect: normal affect
--- NOTE | 2021-01-07 08:58 | PM.OBDSVD ---
DS: Admitting Diagnosis Admitting Diagnosis Admitting Diagnosis: Post term 42 weeks Advanced maternal age MTHFR Large for gestational age -induced hypertension History of recurrent losses DS: Discharge Diagnosis Discharge Diagnosis (1) Post term , delivered: Code(s): O48.0 - Post-term Status: Acute (2) -induced hypertension in third trimester: Code(s): O13.3 - Gestational [-induced] hypertension without significant proteinuria, third trimester Status: Acute (3) Large for gestational age fetus: Status: Acute (4) Post term : Code(s): O48.0 - Post-term Status: Acute (5) Elective induction of labor planned: Status: Acute (6) Recurrent loss: Code(s): N96 - Recurrent loss Status: Acute (7) Heterozygous MTHFR mutation [id number]: Code(s): Z15.89 - Genetic susceptibility to other disease Status: Acute (8) AMA (advanced maternal age) multigravida 35+: Code(s): O09.529 - Supervision of elderly multigravida, unspecified trimester Status: Acute OB - DS: Summary Hospital Course Time spent discussing smoking cessation with patient: 3 to 10 minutes OB Procedures : Ultrasound OB Procedures Intrapartum: Spontaneous Vag Delivery OB Procedures: : None Peripartum Data Delivery Method: Natural Vaginal Laceration Description: None Episiotomy description: None Procedures: Normal spontaneous vertex vaginal delivery a viable female and placenta complications: none [place] 1: Gender: Female (Edda) Disposition of : home Status at Discharge Cognitive/behavioral status at discharge: Normal Functional status at discharge: independent ambulation Overall status at discharge: patient is back to baseline Time Spent with Patient Time attestation: Total time spent providing and/or coordinating discharge services: Time spent: Less than 30 minutes Exam Const: General: cooperative, healthy appearing, comfortable, no acute distress, well developed, alert, awake and Physically active Nutritional Appearance: average body habitus and well nourished Orientation/consciousness: patient oriented x3 Limitations: no limitations HENMT: Head: normal to inspection Eyes: General: appearance normal, both eyes and all related structures Neck: Neck: normal visual inspection Chest: Chest palpation & inspection: normal inspection of the chest Resp: Effort & Inspection: normal respiratory effort Cardio: Rate: regular rate Rhythm: regular rhythm GI: Inspection: normal to inspection GI Palp: Yes Soft to palpation Auscultation: normal bowel sounds : External Female Exam: normal external appearance Bimanual exam- vagina & uterus: non-tender Back/Spine/Pelvis: Back: no CVA tenderness Skin: General skin exam: normal color Neuro: General: patient oriented x3, gait normal, tone normal, moves all extremities and no focal motor deficits Extrem: General: normal to inspection and full ROM Psych: Appearance: grossly normal Mental Status: mental status grossly normal Speech and movement: Normal speech and movement present Affect: normal affect Attitude: cooperative Thought process: Normal thought process present Thought content: Yes Normal thought content present Insight: Good insight present (Psych) Judgement: Good judgement present (Psych) DS: Data Data Completed and Pending Labs on day of discharge: Labs from last 24 hours 01/05/21 01/05/21 01/05/21 17:23 17:23 17:23 WBC RBC Hgb Hct MCV MCH MCHC RDW Plt Count MPV Immature Gran % (Auto) Neut % (Auto) Lymph % (Auto) [place] % (Auto) Eos % (Auto) Baso % (Auto) Lymph # (Auto) [place] # (Auto) Eos # (Auto) Baso # (Auto) Abs Immat Gran (auto) Absolute Neuts (auto) Abs
[2021-01-07 09:26] VITALS: BP 148/94; PULSE 72; RESP 16; TEMP 36.9; O2SAT 98
[2021-01-07 09:30] VITALS: PULSE 72; RESP 16; O2SAT 98
--- NOTE | 2021-01-07 09:30 | PC.NURSE ---
PT introductions made and plan of care discussed per post , pain management, breast feeding, daily care activities and pending discharge to home. PT receives education and instructions per one to one discussion, demonstration, mom baby care guide. PT and spouse both recipients of such instructions and no barriers to learning identified. PT verbalized understanding of such care. Mom breast feeding 3 year old son simultaneously with . 5 year son old allowed in room per directors permission. Pt states milk in and 5 year old had been breast feeding his entire 5 years of life.
[2021-01-07] MEDS: DOCUSATE SODIUM 100 MG CAPSULE PO (09:33)
[2021-01-07] MEDS: LANOLIN (LANSINOH) 7.5 GM CREAM 1 APPLIC TOPICAL (09:33)
[2021-01-07] MEDS: MULTIVIT/MIN/PREN/FOL AC/IRON TABLET 1 TAB PO (09:33)
--- NOTE | 2021-01-07 10:00 | PC.NURSE ---
Patient viewed the discharge video Mother & Baby Care, The First Two Weeks . Patient was given the opportunity and encouraged to ask questions. Patient verbalized understanding of information shared and has been given the mother/baby guide for home reference.
--- NOTE | 2021-01-07 13:00 | PC.NURSE ---
PT discharged to home ambulatory accompanied by spouse and and taken to waiting car. Follow up appts confirmed
== END 2021-01-07 13:00 | disposition home or self-care (01) | DRG 560 ==
LOC: ANHLDR 21:33 → ANHOB2 23:43
PROVIDERS: Admitting Provider Obstetrics & Gynecology; Visit Provider Obstetrics & Gynecology
DX: O48.0 Post-term pregnancy (principal); Z37.0 Single live birth; Z3A.42 42 weeks gestation of pregnancy; O62.3 Precipitate labor; O77.0 Labor and delivery complicated by meconium in amniotic fluid; O99.284 Endocrine, nutritional and metabolic diseases complicating childbirth; E72.12 Methylenetetrahydrofolate reductase deficiency; O99.02 Anemia complicating childbirth; D64.9 Anemia, unspecified; O36.63X0 Maternal care for excessive fetal growth, third trimester, not applicable or unspecified; O13.4 Gestational [pregnancy-induced] hypertension without significant proteinuria, complicating childbirth; O69.81X0 Labor and delivery complicated by cord around neck, without compression, not applicable or unspecified
CPT/HCPCS: 36415; 80053; 84550; 85014; 85018; 85025; 86592; 86850; 86900; 86901; 88307; A9270; J2590; J7120